=== PATIENT | male | born 1950 | race Caucasian/White ===

== ENCOUNTER 2019-07-12 12:03 | Inpatient (IN) ==
[2019-07-13] MEDS: Acetaminophen 325 MG TABLET PO PRN (05:53)
[2019-07-13 06:42] LABS: Basophils # 0.1 K/mcL (0.0-0.2); Basophils % 0.5 %; Eosinophils # 0.2 K/mcL (0.0-0.6); Eosinophils % 1.9 %; Hematocrit 24.8 % (37.5-50.1); Hemoglobin 8.1 g/dL (12.9-16.9); Immature Granulocytes % 1.8 % (0-4); Mean Corpuscular HGB Conc 32.7 g/dL (31.6-35.5); Mean Corpuscular Hemoglobin 32.1 pg (28.0-33.3); Mean Corpuscular Volume 98.4 fL (83.0-100.0); Monocytes % 9.1 %; Neutrophils # 8.7 K/mcL (1.6-8.9); Platelet Count 440 K/mcL (140-400); Red Blood Count 2.52 M/mcL (4.19-5.50); Red Cell Distribution Width 16.8 % (11.5-14.5); Segmented Neutrophils % 77.7 %; White Blood Count 11.2 K/mcL (4.3-11.1)
[2019-07-13 06:56] LABS: Alanine Aminotransferase 78 Units/L (7-52); Albumin 2.6 g/dL (3.5-5.7); Albumin/Globulin Ratio 0.7 (1.1-2.2); Alkaline Phosphatase 249 Units/L (34-104); Aspartate Amino Transferase 75 Units/L (13-39); BUN/Creatinine Ratio 28 (6-26); Bilirubin,Total 1.8 mg/dL (0.3-1.0); Blood Urea Nitrogen 37 mg/dL (8-23); Calcium 7.9 mg/dL (8.6-10.3); Carbon Dioxide 23 mEq/L (23-29); Chloride 108 mEq/L (98-107); Globulin 3.5 g/dL (2.4-3.5); Glucose 105 mg/dL (70-105); Magnesium 1.8 mg/dL (1.6-2.6); Osmolality,Calculated 297 (280-300); Potassium 3.4 mEq/L (3.5-5.1); Sodium 139 mEq/L (136-145); Total Protein 6.1 g/dL (6.4-8.9); eGFR For African Americans > 60 (> 60); eGFR For Non-African Americans 54 (> 60)
[2019-07-13] MEDS: Furosemide 40 MG TABLET PO SCH (07:38)
[2019-07-13] MEDS: DilTIAZem CD (24hr) 240 MG CAP.ER.24H PO SCH (08:13)
[2019-07-13] MEDS: *HR* Rivaroxaban 10 MG TABLET PO SCH (08:13)
[2019-07-14] MEDS: Acetaminophen 325 MG TABLET PO PRN (06:48)
[2019-07-14] MEDS: Furosemide 40 MG TABLET PO SCH (09:16)
[2019-07-14] MEDS: *HR* Rivaroxaban 10 MG TABLET PO SCH (09:17)
[2019-07-14] MEDS: DilTIAZem CD (24hr) 240 MG CAP.ER.24H PO SCH (09:17)
[2019-07-14 09:43] LABS: Hematocrit 26.8 % (37.5-50.1); Hemoglobin 8.6 g/dL (12.9-16.9); Mean Corpuscular HGB Conc 32.1 g/dL (31.6-35.5); Mean Corpuscular Volume 99.6 fL (83.0-100.0); Mean Platelet Volume 10.4 fL (9.4-12.4); Platelet Count 539 K/mcL (140-400); Red Blood Count 2.69 M/mcL (4.19-5.50); Red Cell Distribution Width 17.1 % (11.5-14.5); White Blood Count 11.1 K/mcL (4.3-11.1)
[2019-07-14 09:55] LABS: Alanine Aminotransferase 83 Units/L (7-52); Albumin 2.9 g/dL (3.5-5.7); Albumin/Globulin Ratio 0.8 (1.1-2.2); Alkaline Phosphatase 252 Units/L (34-104); Aspartate Amino Transferase 80 Units/L (13-39); BUN/Creatinine Ratio 27 (6-26); Bilirubin,Total 1.8 mg/dL (0.3-1.0); Blood Urea Nitrogen 33 mg/dL (8-23); Calcium 8.2 mg/dL (8.6-10.3); Carbon Dioxide 23 mEq/L (23-29); Chloride 105 mEq/L (98-107); Globulin 3.8 g/dL (2.4-3.5); Glucose 142 mg/dL (70-105); Magnesium 1.9 mg/dL (1.6-2.6); Osmolality,Calculated 294 (280-300); Potassium 3.5 mEq/L (3.5-5.1); Sodium 137 mEq/L (136-145); Total Protein 6.7 g/dL (6.4-8.9); eGFR For African Americans > 60 (> 60); eGFR For Non-African Americans 58 (> 60)
[2019-07-14] MEDS: polyethylene glycoL 3350 17 GM POWD.PACK PO PRN (11:38)
[2019-07-15] MEDS: Furosemide 40 MG TABLET PO SCH (08:50)
[2019-07-15] MEDS: *HR* Rivaroxaban 10 MG TABLET PO SCH (08:50)
[2019-07-15] MEDS: polyethylene glycoL 3350 17 GM POWD.PACK PO PRN (08:50)
[2019-07-15] MEDS: DilTIAZem CD (24hr) 240 MG CAP.ER.24H PO SCH (08:50)
[2019-07-16 05:31] LABS: Hematocrit 24.7 % (37.5-50.1); Hemoglobin 7.9 g/dL (12.9-16.9); Mean Corpuscular Hemoglobin 32.2 pg (28.0-33.3); Mean Corpuscular Volume 100.8 fL (83.0-100.0); Mean Platelet Volume 9.7 fL (9.4-12.4); Platelet Count 449 K/mcL (140-400); Red Blood Count 2.45 M/mcL (4.19-5.50); Red Cell Distribution Width 16.4 % (11.5-14.5); White Blood Count 8.9 K/mcL (4.3-11.1)
[2019-07-16 05:47] LABS: Alanine Aminotransferase 63 Units/L (7-52); Albumin 2.4 g/dL (3.5-5.7); Albumin/Globulin Ratio 0.7 (1.1-2.2); Alkaline Phosphatase 195 Units/L (34-104); Aspartate Amino Transferase 61 Units/L (13-39); BUN/Creatinine Ratio 26 (6-26); Bilirubin,Total 1.3 mg/dL (0.3-1.0); Blood Urea Nitrogen 29 mg/dL (8-23); Calcium 7.8 mg/dL (8.6-10.3); Carbon Dioxide 26 mEq/L (23-29); Chloride 104 mEq/L (98-107); Globulin 3.5 g/dL (2.4-3.5); Glucose 104 mg/dL (70-105); Magnesium 1.8 mg/dL (1.6-2.6); Osmolality,Calculated 290 (280-300); Potassium 3.4 mEq/L (3.5-5.1); Sodium 137 mEq/L (136-145); Total Protein 5.9 g/dL (6.4-8.9); eGFR For African Americans > 60 (> 60); eGFR For Non-African Americans > 60 (> 60)
[2019-07-16] MEDS: DilTIAZem CD (24hr) 240 MG CAP.ER.24H PO SCH (09:29)
[2019-07-16] MEDS: *HR* Rivaroxaban 10 MG TABLET PO SCH (09:29)
[2019-07-16] MEDS: Acetaminophen 325 MG TABLET PO PRN (09:29)
[2019-07-16] MEDS: Furosemide 40 MG TABLET PO SCH (09:30)
[2019-07-17] MEDS: *HR* Rivaroxaban 10 MG TABLET PO SCH (08:49)
[2019-07-17] MEDS: Furosemide 40 MG TABLET PO SCH ×2 (08:49→15:31)
[2019-07-17] MEDS: DilTIAZem CD (24hr) 240 MG CAP.ER.24H PO SCH (08:49)
[2019-07-17 15:35] LABS: Basophils # 0.1 K/mcL (0.0-0.2); Basophils % 0.6 %; Eosinophils # 0.2 K/mcL (0.0-0.6); Eosinophils % 2.4 %; Hematocrit 25.2 % (37.5-50.1); Hemoglobin 8.3 g/dL (12.9-16.9); Immature Granulocytes % 1.5 % (0-4); Lymphocytes % 10.9 %; Mean Corpuscular HGB Conc 32.9 g/dL (31.6-35.5); Mean Corpuscular Hemoglobin 32.4 pg (28.0-33.3); Mean Corpuscular Volume 98.4 fL (83.0-100.0); Mean Platelet Volume 9.7 fL (9.4-12.4); Monocytes # 1.1 K/mcL (0.0-1.3); Monocytes % 11.9 %; Platelet Count 435 K/mcL (140-400); Red Blood Count 2.56 M/mcL (4.19-5.50); Red Cell Distribution Width 16.1 % (11.5-14.5); Segmented Neutrophils % 72.7 %; White Blood Count 9.6 K/mcL (4.3-11.1)
[2019-07-18 05:57] LABS: Basophils # 0.1 K/mcL (0.0-0.2); Basophils % 0.8 %; Eosinophils # 0.2 K/mcL (0.0-0.6); Eosinophils % 2.5 %; Hematocrit 23.9 % (37.5-50.1); Hemoglobin 7.8 g/dL (12.9-16.9); Immature Granulocytes % 1.3 % (0-4); Lymphocytes # 1.1 K/mcL (0.6-4.6); Lymphocytes % 11.8 %; Mean Corpuscular HGB Conc 32.6 g/dL (31.6-35.5); Mean Corpuscular Hemoglobin 32.2 pg (28.0-33.3); Mean Corpuscular Volume 98.8 fL (83.0-100.0); Mean Platelet Volume 9.3 fL (9.4-12.4); Monocytes # 1.1 K/mcL (0.0-1.3); Monocytes % 11.7 %; Neutrophils # 6.5 K/mcL (1.6-8.9); Platelet Count 430 K/mcL (140-400); Red Blood Count 2.42 M/mcL (4.19-5.50); Segmented Neutrophils % 71.9 %
[2019-07-18 06:10] LABS: BUN/Creatinine Ratio 24 (6-26); Blood Urea Nitrogen 29 mg/dL (8-23); Calcium 7.8 mg/dL (8.6-10.3); Carbon Dioxide 26 mEq/L (23-29); Chloride 103 mEq/L (98-107); Glucose 110 mg/dL (70-105); Osmolality,Calculated 286 (280-300); Potassium 3.3 mEq/L (3.5-5.1); Sodium 135 mEq/L (136-145); eGFR For African Americans > 60 (> 60); eGFR For Non-African Americans 59 (> 60)
[2019-07-18] MEDS: Furosemide 40 MG TABLET PO SCH ×2 (09:59→18:04)
[2019-07-18] MEDS: *HR* Rivaroxaban 10 MG TABLET PO SCH (09:59)
[2019-07-18] MEDS: DilTIAZem CD (24hr) 240 MG CAP.ER.24H PO SCH (10:00)
[2019-07-19 05:42] LABS: Basophils # 0.1 K/mcL (0.0-0.2); Basophils % 0.8 %; Eosinophils # 0.2 K/mcL (0.0-0.6); Eosinophils % 2.7 %; Hematocrit 24.9 % (37.5-50.1); Hemoglobin 8.1 g/dL (12.9-16.9); Immature Granulocytes % 1.9 % (0-4); Lymphocytes # 1.1 K/mcL (0.6-4.6); Mean Corpuscular HGB Conc 32.5 g/dL (31.6-35.5); Mean Corpuscular Hemoglobin 31.9 pg (28.0-33.3); Mean Platelet Volume 9.4 fL (9.4-12.4); Monocytes # 1.1 K/mcL (0.0-1.3); Monocytes % 12.6 %; Neutrophils # 5.9 K/mcL (1.6-8.9); Platelet Count 449 K/mcL (140-400); Red Blood Count 2.54 M/mcL (4.19-5.50); Red Cell Distribution Width 15.9 % (11.5-14.5); White Blood Count 8.6 K/mcL (4.3-11.1)
[2019-07-19 06:06] LABS: BUN/Creatinine Ratio 24 (6-26); Blood Urea Nitrogen 29 mg/dL (8-23); Calcium 7.7 mg/dL (8.6-10.3); Carbon Dioxide 26 mEq/L (23-29); Chloride 101 mEq/L (98-107); Glucose 108 mg/dL (70-105); Osmolality,Calculated 284 (280-300); Potassium 3.2 mEq/L (3.5-5.1); Sodium 134 mEq/L (136-145); eGFR For African Americans > 60 (> 60); eGFR For Non-African Americans 60 (> 60)
[2019-07-19] MEDS: DilTIAZem CD (24hr) 240 MG CAP.ER.24H PO SCH (08:27)
[2019-07-19] MEDS: Furosemide 40 MG TABLET PO SCH ×2 (08:27→16:53)
[2019-07-19] MEDS: *HR* Rivaroxaban 10 MG TABLET PO SCH (08:27)
[2019-07-20 06:05] LABS: BUN/Creatinine Ratio 25 (6-26); Blood Urea Nitrogen 28 mg/dL (8-23); Calcium 7.7 mg/dL (8.6-10.3); Carbon Dioxide 27 mEq/L (23-29); Chloride 104 mEq/L (98-107); Glucose 107 mg/dL (70-105); Osmolality,Calculated 292 (280-300); Potassium 3.3 mEq/L (3.5-5.1); Sodium 138 mEq/L (136-145); eGFR For African Americans > 60 (> 60); eGFR For Non-African Americans > 60 (> 60)
[2019-07-20] MEDS: *HR* Rivaroxaban 10 MG TABLET PO SCH (09:30)
[2019-07-20] MEDS: Furosemide 40 MG TABLET PO SCH ×2 (09:33→18:40)
[2019-07-20] MEDS: DilTIAZem CD (24hr) 240 MG CAP.ER.24H PO SCH (18:33)
[2019-07-21] MEDS: DilTIAZem CD (24hr) 240 MG CAP.ER.24H PO SCH (08:52)
[2019-07-21] MEDS: *HR* Rivaroxaban 10 MG TABLET PO SCH (08:52)
[2019-07-21] MEDS: Furosemide 40 MG TABLET PO SCH ×2 (08:53→17:22)
[2019-07-21] MEDS: Simethicone 80 MG TAB.CHEW PO PRN ×2 (10:55→20:51)
[2019-07-22 05:54] LABS: BUN/Creatinine Ratio 23 (6-26); Blood Urea Nitrogen 25 mg/dL (8-23); Calcium 7.7 mg/dL (8.6-10.3); Carbon Dioxide 29 mEq/L (23-29); Chloride 103 mEq/L (98-107); Glucose 112 mg/dL (70-105); Osmolality,Calculated 293 (280-300); Potassium 3.4 mEq/L (3.5-5.1); Sodium 139 mEq/L (136-145); eGFR For African Americans > 60 (> 60); eGFR For Non-African Americans > 60 (> 60)
[2019-07-22] MEDS: *HR* Rivaroxaban 10 MG TABLET PO SCH (08:47)
[2019-07-22] MEDS: Furosemide 40 MG TABLET PO SCH ×2 (08:48→17:03)
[2019-07-22] MEDS: DilTIAZem CD (24hr) 240 MG CAP.ER.24H PO SCH (08:48)
[2019-07-22] MEDS: Simethicone 80 MG TAB.CHEW PO PRN ×2 (08:52→19:59)
[2019-07-23] MEDS: Furosemide 40 MG TABLET PO SCH ×2 (09:47→16:12)
[2019-07-23] MEDS: *HR* Rivaroxaban 10 MG TABLET PO SCH (10:22)
[2019-07-23] MEDS: DilTIAZem CD (24hr) 180 MG CAP.ER.24H PO SCH (10:23)
[2019-07-23] MEDS: DilTIAZem CD (24hr) 240 MG CAP.ER.24H PO SCH (11:14)
[2019-07-23] MEDS: Simethicone 80 MG TAB.CHEW PO PRN (21:21)
[2019-07-24 06:01] LABS: Basophils # 0.1 K/mcL (0.0-0.2); Basophils % 1.1 %; Eosinophils # 0.2 K/mcL (0.0-0.6); Eosinophils % 2.2 %; Hematocrit 28.3 % (37.5-50.1); Hemoglobin 8.8 g/dL (12.9-16.9); Immature Granulocytes % 1.9 % (0-4); Lymphocytes # 1.1 K/mcL (0.6-4.6); Lymphocytes % 13.3 %; Mean Corpuscular HGB Conc 31.1 g/dL (31.6-35.5); Mean Corpuscular Hemoglobin 31.3 pg (28.0-33.3); Mean Corpuscular Volume 100.7 fL (83.0-100.0); Mean Platelet Volume 9.5 fL (9.4-12.4); Monocytes # 1.1 K/mcL (0.0-1.3); Monocytes % 12.3 %; Neutrophils # 5.9 K/mcL (1.6-8.9); Platelet Count 322 K/mcL (140-400); Red Blood Count 2.81 M/mcL (4.19-5.50); Red Cell Distribution Width 15.9 % (11.5-14.5); Segmented Neutrophils % 69.2 %; White Blood Count 8.6 K/mcL (4.3-11.1)
[2019-07-24 06:14] LABS: Alanine Aminotransferase 56 Units/L (7-52); Albumin 2.5 g/dL (3.5-5.7); Albumin/Globulin Ratio 0.7 (1.1-2.2); Alkaline Phosphatase 180 Units/L (34-104); Aspartate Amino Transferase 61 Units/L (13-39); BUN/Creatinine Ratio 20 (6-26); Bilirubin,Total 0.8 mg/dL (0.3-1.0); Blood Urea Nitrogen 25 mg/dL (8-23); Carbon Dioxide 32 mEq/L (23-29); Chloride 102 mEq/L (98-107); Globulin 3.5 g/dL (2.4-3.5); Glucose 105 mg/dL (70-105); Osmolality,Calculated 291 (280-300); Potassium 3.9 mEq/L (3.5-5.1); Sodium 138 mEq/L (136-145); eGFR For African Americans > 60 (> 60); eGFR For Non-African Americans 57 (> 60)
[2019-07-24] MEDS: *HR* Rivaroxaban 10 MG TABLET PO SCH (07:43)
[2019-07-24] MEDS: DilTIAZem CD (24hr) 180 MG CAP.ER.24H PO SCH (07:43)
[2019-07-24] MEDS: Furosemide 40 MG TABLET PO SCH ×2 (07:44→17:13)
[2019-07-25] MEDS: Furosemide 40 MG TABLET PO SCH ×2 (08:40→16:24)
[2019-07-25] MEDS: *HR* Rivaroxaban 10 MG TABLET PO SCH (08:40)
[2019-07-25] MEDS: DilTIAZem CD (24hr) 180 MG CAP.ER.24H PO SCH (08:40)
[2019-07-25] MEDS: Simethicone 80 MG TAB.CHEW PO PRN (20:10)
[2019-07-26] MEDS: DilTIAZem CD (24hr) 180 MG CAP.ER.24H PO SCH (08:01)
[2019-07-26] MEDS: *HR* Rivaroxaban 10 MG TABLET PO SCH (08:01)
[2019-07-26] MEDS: Furosemide 40 MG TABLET PO SCH ×2 (08:01→16:58)
[2019-07-26] MEDS: Simethicone 80 MG TAB.CHEW PO PRN (21:30)
[2019-07-27 05:22] LABS: Hematocrit 25.4 % (37.5-50.1); Hemoglobin 8.1 g/dL (12.9-16.9); Mean Corpuscular HGB Conc 31.9 g/dL (31.6-35.5); Mean Corpuscular Hemoglobin 31.9 pg (28.0-33.3); Mean Platelet Volume 9.7 fL (9.4-12.4); Platelet Count 287 K/mcL (140-400); Red Blood Count 2.54 M/mcL (4.19-5.50); Red Cell Distribution Width 15.8 % (11.5-14.5); White Blood Count 7.5 K/mcL (4.3-11.1)
[2019-07-27 05:28] LABS: INR 1.6; Prothrombin Time 17.8 Seconds (9.4-12.1)
[2019-07-27 05:31] LABS: Activated Partial Thrombo Time 31.6 Seconds (26.0-36.0)
[2019-07-27 05:42] LABS: Alanine Aminotransferase 53 Units/L (7-52); Albumin 2.5 g/dL (3.5-5.7); Albumin/Globulin Ratio 0.7 (1.1-2.2); Alkaline Phosphatase 186 Units/L (34-104); Aspartate Amino Transferase 56 Units/L (13-39); BUN/Creatinine Ratio 21 (6-26); Bilirubin,Total 0.7 mg/dL (0.3-1.0); Blood Urea Nitrogen 24 mg/dL (8-23); Carbon Dioxide 29 mEq/L (23-29); Chloride 104 mEq/L (98-107); Globulin 3.4 g/dL (2.4-3.5); Glucose 106 mg/dL (70-105); Osmolality,Calculated 292 (280-300); Potassium 3.9 mEq/L (3.5-5.1); Sodium 139 mEq/L (136-145); Total Protein 5.9 g/dL (6.4-8.9); eGFR For African Americans > 60 (> 60); eGFR For Non-African Americans > 60 (> 60)
[2019-07-27] MEDS: *HR* Rivaroxaban 10 MG TABLET PO SCH (08:10)
[2019-07-27] MEDS: Furosemide 40 MG TABLET PO SCH ×2 (08:11→15:44)
[2019-07-27] MEDS: DilTIAZem CD (24hr) 180 MG CAP.ER.24H PO SCH (08:11)
[2019-07-27] MEDS: Simethicone 80 MG TAB.CHEW PO PRN (21:39)
[2019-07-28] MEDS: Furosemide 40 MG TABLET PO SCH ×2 (08:24→17:05)
[2019-07-28] MEDS: DilTIAZem CD (24hr) 180 MG CAP.ER.24H PO SCH (08:24)
[2019-07-28] MEDS: *HR* Rivaroxaban 10 MG TABLET PO SCH (08:24)
[2019-07-29] MEDS: *HR* Rivaroxaban 10 MG TABLET PO SCH (08:41)
[2019-07-29] MEDS: DilTIAZem CD (24hr) 180 MG CAP.ER.24H PO SCH (08:41)
[2019-07-29] MEDS: Furosemide 40 MG TABLET PO SCH ×2 (08:41→17:36)
[2019-07-29 17:50] LABS: Hematocrit 31.5 % (37.5-50.1); Hemoglobin 10.1 g/dL (12.9-16.9); Mean Corpuscular HGB Conc 32.1 g/dL (31.6-35.5); Mean Corpuscular Hemoglobin 32.1 pg (28.0-33.3); Mean Platelet Volume 9.2 fL (9.4-12.4); Platelet Count 356 K/mcL (140-400); Red Blood Count 3.15 M/mcL (4.19-5.50); Red Cell Distribution Width 15.9 % (11.5-14.5); White Blood Count 8.9 K/mcL (4.3-11.1)
[2019-07-29 18:17] LABS: Alanine Aminotransferase 66 Units/L (7-52); Albumin 3.1 g/dL (3.5-5.7); Albumin/Globulin Ratio 0.8 (1.1-2.2); Alkaline Phosphatase 218 Units/L (34-104); Aspartate Amino Transferase 78 Units/L (13-39); BUN/Creatinine Ratio 19 (6-26); Bilirubin,Total 0.8 mg/dL (0.3-1.0); Blood Urea Nitrogen 24 mg/dL (8-23); Calcium 8.6 mg/dL (8.6-10.3); Carbon Dioxide 28 mEq/L (23-29); Chloride 102 mEq/L (98-107); Glucose 123 mg/dL (70-105); Magnesium 2.2 mg/dL (1.6-2.6); Osmolality,Calculated 289 (280-300); Sodium 137 mEq/L (136-145); Total Protein 7.1 g/dL (6.4-8.9); eGFR For African Americans > 60 (> 60); eGFR For Non-African Americans 55 (> 60)
[2019-07-30] MEDS: DilTIAZem CD (24hr) 180 MG CAP.ER.24H PO SCH (03:13)
[2019-07-30] MEDS: *HR* Rivaroxaban 10 MG TABLET PO SCH (12:36)
[2019-07-30] MEDS: Furosemide 40 MG TABLET PO SCH ×2 (12:47→17:20)
[2019-07-31] MEDS: *HR* Rivaroxaban 10 MG TABLET PO SCH (08:53)
[2019-07-31] MEDS: Furosemide 40 MG TABLET PO SCH ×2 (08:53→17:15)
[2019-07-31] MEDS: DilTIAZem CD (24hr) 180 MG CAP.ER.24H PO SCH (08:53)
[2019-07-31 17:06] LABS: Bilirubin,Urine Negative (Negative); Blood,Urine Moderate (Negative); Clarity,Urine Clear (Clear); Color,Urine Yellow (Yellow); Glucose,Urine (UA) Normal (Normal); Ketones,Urine Negative (Negative); Leukocyte Esterase,Urine Small (Negative); Nitrite,Urine Negative (Negative); Protein,Urine Negative (Neg-Trace); Urobilinogen,Urine Normal (Normal)
[2019-07-31 17:16] LABS: Bacteria,Urine Many per hpf (None-Few); Squamous Epithelial Cell,Urine Few per lpf (None-Few)
[2019-07-31] MEDS: Nystatin POWDER 30 GM BOTTLE TP SCH (20:19)
[2019-08-01] MEDS: DilTIAZem CD (24hr) 180 MG CAP.ER.24H PO SCH (08:18)
[2019-08-01] MEDS: Furosemide 40 MG TABLET PO SCH ×2 (08:18→18:36)
[2019-08-01] MEDS: *HR* Rivaroxaban 10 MG TABLET PO SCH (08:18)
[2019-08-01] MEDS: Simethicone 80 MG TAB.CHEW PO PRN (09:51)
[2019-08-01 11:02] LABS: Basophils # 0.1 K/mcL (0.0-0.2); Basophils % 0.7 %; Eosinophils # 0.1 K/mcL (0.0-0.6); Eosinophils % 1.5 %; Hematocrit 31.1 % (37.5-50.1); Hemoglobin 9.8 g/dL (12.9-16.9); Immature Granulocytes % 1.3 % (0-4); Lymphocytes # 0.9 K/mcL (0.6-4.6); Lymphocytes % 10.1 %; Mean Corpuscular HGB Conc 31.5 g/dL (31.6-35.5); Mean Corpuscular Volume 101.6 fL (83.0-100.0); Mean Platelet Volume 9.3 fL (9.4-12.4); Monocytes # 0.8 K/mcL (0.0-1.3); Monocytes % 9.4 %; Neutrophils # 6.9 K/mcL (1.6-8.9); Platelet Count 357 K/mcL (140-400); Red Blood Count 3.06 M/mcL (4.19-5.50); Red Cell Distribution Width 16.2 % (11.5-14.5); White Blood Count 8.9 K/mcL (4.3-11.1)
[2019-08-01 11:20] LABS: BUN/Creatinine Ratio 20 (6-26); Blood Urea Nitrogen 28 mg/dL (8-23); Calcium 8.4 mg/dL (8.6-10.3); Carbon Dioxide 27 mEq/L (23-29); Chloride 100 mEq/L (98-107); Glucose 108 mg/dL (70-105); Osmolality,Calculated 286 (280-300); Potassium 4.2 mEq/L (3.5-5.1); Sodium 135 mEq/L (136-145); eGFR For African Americans > 60 (> 60); eGFR For Non-African Americans 51 (> 60)
[2019-08-01] MEDS: Nystatin POWDER 30 GM BOTTLE TP SCH ×2 (12:14→20:50)
[2019-08-01] MEDS: cephALEXin 500 MG CAPSULE PO SCH ×2 (15:11→20:48)
[2019-08-02] MEDS: cephALEXin 500 MG CAPSULE PO SCH ×3 (08:10→21:44)
[2019-08-02] MEDS: *HR* Rivaroxaban 10 MG TABLET PO SCH (08:10)
[2019-08-02] MEDS: DilTIAZem CD (24hr) 180 MG CAP.ER.24H PO SCH (08:10)
[2019-08-02] MEDS: Furosemide 40 MG TABLET PO SCH (08:10)
[2019-08-02] MEDS: Nystatin POWDER 30 GM BOTTLE TP SCH ×2 (08:11→21:44)
[2019-08-02 12:00] LABS: Basophils % 0.5 %; Eosinophils # 0.1 K/mcL (0.0-0.6); Eosinophils % 1.4 %; Hematocrit 28.1 % (37.5-50.1); Immature Granulocytes % 1.5 % (0-4); Lymphocytes # 0.9 K/mcL (0.6-4.6); Mean Corpuscular Hemoglobin 32.1 pg (28.0-33.3); Mean Corpuscular Volume 100.4 fL (83.0-100.0); Mean Platelet Volume 9.1 fL (9.4-12.4); Monocytes # 0.8 K/mcL (0.0-1.3); Monocytes % 10.1 %; Neutrophils # 5.9 K/mcL (1.6-8.9); Platelet Count 313 K/mcL (140-400); Red Cell Distribution Width 15.9 % (11.5-14.5); Segmented Neutrophils % 75.5 %; White Blood Count 7.8 K/mcL (4.3-11.1)
[2019-08-02 12:13] LABS: BUN/Creatinine Ratio 21 (6-26); Blood Urea Nitrogen 27 mg/dL (8-23); Carbon Dioxide 28 mEq/L (23-29); Chloride 102 mEq/L (98-107); Glucose 128 mg/dL (70-105); Osmolality,Calculated 289 (280-300); Potassium 4.1 mEq/L (3.5-5.1); Sodium 136 mEq/L (136-145); eGFR For African Americans > 60 (> 60); eGFR For Non-African Americans 56 (> 60)
[2019-08-03 05:31] LABS: BUN/Creatinine Ratio 22 (6-26); Blood Urea Nitrogen 23 mg/dL (8-23); Calcium 8.1 mg/dL (8.6-10.3); Carbon Dioxide 28 mEq/L (23-29); Chloride 103 mEq/L (98-107); Glucose 109 mg/dL (70-105); Osmolality,Calculated 288 (280-300); Potassium 4.1 mEq/L (3.5-5.1); Sodium 137 mEq/L (136-145); eGFR For African Americans > 60 (> 60); eGFR For Non-African Americans > 60 (> 60)
[2019-08-03] MEDS: *HR* Rivaroxaban 10 MG TABLET PO SCH (08:27)
[2019-08-03] MEDS: DilTIAZem CD (24hr) 180 MG CAP.ER.24H PO SCH (08:28)
[2019-08-03] MEDS: cephALEXin 500 MG CAPSULE PO SCH ×3 (08:28→21:32)
[2019-08-03 09:54] LABS: Prealbumin 11.4 mg/dL (17.0-34.0)
[2019-08-03] MEDS: Nystatin POWDER 30 GM BOTTLE TP SCH ×2 (12:00→21:32)
[2019-08-04] MEDS: *HR* Rivaroxaban 10 MG TABLET PO SCH (08:16)
[2019-08-04] MEDS: DilTIAZem CD (24hr) 180 MG CAP.ER.24H PO SCH (08:16)
[2019-08-04] MEDS: Cholecalciferol (D-3) 1,000 UNIT (25MCG) TABLET PO SCH (08:16)
[2019-08-04] MEDS: cephALEXin 500 MG CAPSULE PO SCH ×3 (08:16→20:22)
[2019-08-04] MEDS: Nystatin POWDER 30 GM BOTTLE TP SCH ×2 (08:19→20:23)
[2019-08-04] MEDS: Furosemide 40 MG TABLET PO SCH (16:18)
[2019-08-05] MEDS: *HR* Rivaroxaban 10 MG TABLET PO SCH (08:12)
[2019-08-05] MEDS: DilTIAZem CD (24hr) 180 MG CAP.ER.24H PO SCH (08:12)
[2019-08-05] MEDS: Cholecalciferol (D-3) 1,000 UNIT (25MCG) TABLET PO SCH (08:13)
[2019-08-05] MEDS: Nystatin POWDER 30 GM BOTTLE TP SCH ×2 (08:13→20:13)
[2019-08-05] MEDS: Furosemide 40 MG TABLET PO SCH ×2 (08:13→15:18)
[2019-08-05] MEDS: cephALEXin 500 MG CAPSULE PO SCH ×3 (08:13→20:13)
[2019-08-06] MEDS: Acetaminophen 325 MG TABLET PO PRN (06:14)
[2019-08-06] MEDS: DilTIAZem CD (24hr) 180 MG CAP.ER.24H PO SCH (09:07)
[2019-08-06] MEDS: Furosemide 40 MG TABLET PO SCH ×2 (09:07→16:57)
[2019-08-06] MEDS: cephALEXin 500 MG CAPSULE PO SCH ×3 (09:07→19:49)
[2019-08-06] MEDS: Cholecalciferol (D-3) 1,000 UNIT (25MCG) TABLET PO SCH (09:07)
[2019-08-06] MEDS: Nystatin POWDER 30 GM BOTTLE TP SCH ×2 (09:08→19:49)
[2019-08-06] MEDS: *HR* Rivaroxaban 10 MG TABLET PO SCH (09:08)
[2019-08-06] MEDS: Simethicone 80 MG TAB.CHEW PO PRN ×2 (09:12→19:49)
[2019-08-07] MEDS: Furosemide 40 MG TABLET PO SCH ×2 (08:19→17:21)
[2019-08-07] MEDS: Cholecalciferol (D-3) 1,000 UNIT (25MCG) TABLET PO SCH (08:19)
[2019-08-07] MEDS: cephALEXin 500 MG CAPSULE PO SCH ×3 (08:19→20:03)
[2019-08-07] MEDS: *HR* Rivaroxaban 10 MG TABLET PO SCH (08:19)
[2019-08-07] MEDS: DilTIAZem CD (24hr) 180 MG CAP.ER.24H PO SCH (08:19)
[2019-08-07] MEDS: Nystatin POWDER 30 GM BOTTLE TP SCH ×2 (08:20→20:03)
[2019-08-08] MEDS: Acetaminophen 325 MG TABLET PO PRN (05:51)
[2019-08-08] MEDS: Furosemide 40 MG TABLET PO SCH ×2 (08:51→17:19)
[2019-08-08] MEDS: *HR* Rivaroxaban 10 MG TABLET PO SCH (09:39)
[2019-08-08] MEDS: cephALEXin 500 MG CAPSULE PO SCH ×2 (09:39→15:06)
[2019-08-08] MEDS: DilTIAZem CD (24hr) 180 MG CAP.ER.24H PO SCH (09:39)
[2019-08-08] MEDS: Cholecalciferol (D-3) 1,000 UNIT (25MCG) TABLET PO SCH (09:39)
[2019-08-08] MEDS: Nystatin POWDER 30 GM BOTTLE TP SCH (09:42)
[2019-08-08] MEDS ORDERED: Nystatin POWDER 30 GM BOTTLE TP PRN (19:08)
[2019-08-09] MEDS: Acetaminophen 325 MG TABLET PO PRN (04:48)
[2019-08-09 06:34] LABS: Alanine Aminotransferase 40 Units/L (7-52); Albumin 2.6 g/dL (3.5-5.7); Albumin/Globulin Ratio 0.9 (1.1-2.2); Alkaline Phosphatase 150 Units/L (34-104); Aspartate Amino Transferase 45 Units/L (13-39); BUN/Creatinine Ratio 16 (6-26); Bilirubin,Total 0.7 mg/dL (0.3-1.0); Blood Urea Nitrogen 19 mg/dL (8-23); Calcium 8.1 mg/dL (8.6-10.3); Carbon Dioxide 30 mEq/L (23-29); Chloride 103 mEq/L (98-107); Glucose 97 mg/dL (70-105); Osmolality,Calculated 288 (280-300); Potassium 3.9 mEq/L (3.5-5.1); Sodium 138 mEq/L (136-145); Total Protein 5.6 g/dL (6.4-8.9); eGFR For African Americans > 60 (> 60); eGFR For Non-African Americans 59 (> 60)
[2019-08-09] MEDS: *HR* Rivaroxaban 10 MG TABLET PO SCH (09:00)
[2019-08-09] MEDS: Cholecalciferol (D-3) 1,000 UNIT (25MCG) TABLET PO SCH (09:00)
[2019-08-09] MEDS: Furosemide 40 MG TABLET PO SCH ×2 (09:00→16:44)
[2019-08-09] MEDS: DilTIAZem CD (24hr) 180 MG CAP.ER.24H PO SCH (09:01)
[2019-08-10] MEDS: *HR* Rivaroxaban 10 MG TABLET PO SCH (09:40)
[2019-08-10] MEDS: DilTIAZem CD (24hr) 180 MG CAP.ER.24H PO SCH (09:40)
[2019-08-10] MEDS: Furosemide 40 MG TABLET PO SCH ×2 (09:41→17:03)
[2019-08-10] MEDS: Cholecalciferol (D-3) 1,000 UNIT (25MCG) TABLET PO SCH (10:02)
[2019-08-11 06:11] LABS: Hematocrit 30.2 % (37.5-50.1); Hemoglobin 9.6 g/dL (12.9-16.9); Mean Corpuscular HGB Conc 31.8 g/dL (31.6-35.5); Mean Corpuscular Hemoglobin 31.8 pg (28.0-33.3); Mean Platelet Volume 9.1 fL (9.4-12.4); Platelet Count 285 K/mcL (140-400); Red Blood Count 3.02 M/mcL (4.19-5.50); Red Cell Distribution Width 15.9 % (11.5-14.5); White Blood Count 5.9 K/mcL (4.3-11.1)
[2019-08-11 06:27] LABS: Alanine Aminotransferase 37 Units/L (7-52); Albumin 2.7 g/dL (3.5-5.7); Albumin/Globulin Ratio 0.8 (1.1-2.2); Alkaline Phosphatase 139 Units/L (34-104); Aspartate Amino Transferase 43 Units/L (13-39); BUN/Creatinine Ratio 15 (6-26); Bilirubin,Total 0.7 mg/dL (0.3-1.0); Blood Urea Nitrogen 17 mg/dL (8-23); Calcium 8.4 mg/dL (8.6-10.3); Carbon Dioxide 29 mEq/L (23-29); Chloride 104 mEq/L (98-107); Globulin 3.3 g/dL (2.4-3.5); Glucose 101 mg/dL (70-105); Osmolality,Calculated 288 (280-300); Sodium 138 mEq/L (136-145); eGFR For African Americans > 60 (> 60); eGFR For Non-African Americans > 60 (> 60)
[2019-08-11] MEDS: *HR* Rivaroxaban 10 MG TABLET PO SCH (07:59)
[2019-08-11] MEDS: Cholecalciferol (D-3) 1,000 UNIT (25MCG) TABLET PO SCH (07:59)
[2019-08-11] MEDS: Furosemide 40 MG TABLET PO SCH ×2 (07:59→18:02)
[2019-08-11] MEDS: DilTIAZem CD (24hr) 180 MG CAP.ER.24H PO SCH (08:00)
[2019-08-12] MEDS: *HR* Rivaroxaban 10 MG TABLET PO SCH (07:55)
[2019-08-12] MEDS: DilTIAZem CD (24hr) 180 MG CAP.ER.24H PO SCH (07:55)
[2019-08-12] MEDS: Furosemide 40 MG TABLET PO SCH ×2 (07:55→16:10)
[2019-08-12] MEDS: Cholecalciferol (D-3) 1,000 UNIT (25MCG) TABLET PO SCH (07:56)
[2019-08-12] MEDS: Acetaminophen 325 MG TABLET PO PRN (08:04)
[2019-08-13] MEDS: *HR* Rivaroxaban 10 MG TABLET PO SCH (08:06)
[2019-08-13] MEDS: Cholecalciferol (D-3) 1,000 UNIT (25MCG) TABLET PO SCH (08:08)
[2019-08-13] MEDS: DilTIAZem CD (24hr) 180 MG CAP.ER.24H PO SCH (08:08)
[2019-08-13] MEDS: Furosemide 40 MG TABLET PO SCH ×2 (08:08→16:24)
[2019-08-14] MEDS: Furosemide 40 MG TABLET PO SCH ×2 (08:34→17:23)
[2019-08-14] MEDS: *HR* Rivaroxaban 10 MG TABLET PO SCH (08:34)
[2019-08-14] MEDS: DilTIAZem CD (24hr) 180 MG CAP.ER.24H PO SCH (08:34)
[2019-08-14] MEDS: Cholecalciferol (D-3) 1,000 UNIT (25MCG) TABLET PO SCH (08:42)
[2019-08-15] MEDS: Furosemide 40 MG TABLET PO SCH ×2 (08:10→16:30)
[2019-08-15] MEDS: Cholecalciferol (D-3) 1,000 UNIT (25MCG) TABLET PO SCH (08:10)
[2019-08-15] MEDS: *HR* Rivaroxaban 10 MG TABLET PO SCH (08:10)
[2019-08-15] MEDS: DilTIAZem CD (24hr) 180 MG CAP.ER.24H PO SCH (08:10)
[2019-08-16 05:36] LABS: Basophils # 0.1 K/mcL (0.0-0.2); Eosinophils # 0.3 K/mcL (0.0-0.6); Eosinophils % 4.1 %; Hematocrit 30.1 % (37.5-50.1); Hemoglobin 9.6 g/dL (12.9-16.9); Immature Granulocytes % 0.5 % (0-4); Lymphocytes # 1.1 K/mcL (0.6-4.6); Lymphocytes % 17.9 %; Mean Corpuscular HGB Conc 31.9 g/dL (31.6-35.5); Mean Corpuscular Hemoglobin 31.6 pg (28.0-33.3); Mean Platelet Volume 9.8 fL (9.4-12.4); Monocytes # 0.7 K/mcL (0.0-1.3); Monocytes % 12.1 %; Neutrophils # 3.9 K/mcL (1.6-8.9); Platelet Count 276 K/mcL (140-400); Red Blood Count 3.04 M/mcL (4.19-5.50); Red Cell Distribution Width 15.3 % (11.5-14.5); Segmented Neutrophils % 64.4 %; White Blood Count 6.1 K/mcL (4.3-11.1)
[2019-08-16 05:50] LABS: BUN/Creatinine Ratio 17 (6-26); Blood Urea Nitrogen 18 mg/dL (8-23); Calcium 8.4 mg/dL (8.6-10.3); Carbon Dioxide 30 mEq/L (23-29); Chloride 103 mEq/L (98-107); Glucose 102 mg/dL (70-105); Osmolality,Calculated 290 (280-300); Potassium 3.7 mEq/L (3.5-5.1); Sodium 139 mEq/L (136-145); eGFR For African Americans > 60 (> 60); eGFR For Non-African Americans > 60 (> 60)
[2019-08-16] MEDS: *HR* Rivaroxaban 10 MG TABLET PO SCH (08:05)
[2019-08-16] MEDS: DilTIAZem CD (24hr) 180 MG CAP.ER.24H PO SCH (08:05)
[2019-08-16] MEDS: Furosemide 40 MG TABLET PO SCH ×2 (08:05→16:58)
[2019-08-16] MEDS: Cholecalciferol (D-3) 1,000 UNIT (25MCG) TABLET PO SCH (08:05)
[2019-08-17 07:22] VITALS: BP 113/70
[2019-08-17] MEDS: Cholecalciferol (D-3) 1,000 UNIT (25MCG) TABLET PO SCH (08:22)
[2019-08-17] MEDS: *HR* Rivaroxaban 10 MG TABLET PO SCH (08:23)
[2019-08-17] MEDS: Furosemide 40 MG TABLET PO SCH (08:23)
[2019-08-17] MEDS: DilTIAZem CD (24hr) 180 MG CAP.ER.24H PO SCH (08:23)
== END 2019-08-17 10:29 | disposition home health service (06) | DRG 949 ==
LOC: INPGRE 17:00
PROVIDERS: ADMIT Family Medicine; ATTEND Family Medicine